=== PATIENT | male | born 1970 | race Caucasian/White ===

== ENCOUNTER 2020-12-05 18:22 | Emergency (ER) | payer OTHER ==
[2020-12-05] MEDS ORDERED: Bacitracin Oint 1 GM U/D Packet TOP ONE (20:06)
[2020-12-05] MEDS ORDERED: Diphtheria,Pertussis(Acell),Tetanus Vaccine 0.5 ML Syringe IM ONE (20:09)
--- NOTE | 2020-12-05 20:32 | EDM.PDOC ---
ED HPI GENERAL MEDICAL PROBLEM - General Chief Complaint: Laceration Stated Complaint: FISH HOOKS LEFT PALM AND LEFT KNEE Time Seen by Provider: 12/05/20 19:49 Source of Information: Reports: Patient History Limitations: Reports: No Limitations - History of Present Illness INITIAL COMMENTS - FREE TEXT/NARRATIVE: 50 yo male presents with fish hooks in left hand and left leg. was kayaking and fish flipped hand into leg imbedding hook in both. Hook was clipped prior to arrival to release from leg. generally healthy - Related Data Allergies Allergy/AdvReac Type Severity Reaction Status Date / Time No Known Allergies Allergy Verified 12/05/20 20:03 Home Meds: Home Meds NK [No Known Home Meds] 12/05/20 [History] Past Medical History - Past Health History Medical/Surgical History: Denies Medical/Surgical History - Infectious Disease History Infectious Disease History: Reports: Chicken Pox Social & Family History - Tobacco Use Tobacco Use Status *Q: Unknown Ever Used Tobacco - Caffeine Use Caffeine Use: Reports: Coffee, Energy Drinks - Recreational Drug Use Recreational Drug Use: No ED ROS GENERAL - Review of Systems Review Of Systems: See Below Constitutional: Denies: Fever Respiratory: Denies: Shortness of Breath Cardiovascular: Denies: Chest Pain ED EXAM, SKIN/RASH Exam: See Below Exam Limited By: No Limitations General Appearance: Alert, WD/WN, No Apparent Distress Respiratory/Chest: No Respiratory Distress Skin: Warm, Dry, Intact, Other (small fish hook in left anterior distal upper leg just above the knee, left palm thumb side) ED SKIN PROCEDURES - Additional/Other Procedure(s) Other (Free Text) Procedure(s): area around hooks cleaned with alcohol. lidocaine 1% injected around imbedded hook. hooks removed with pressure reverse retraction without difficulty. topical antibiotic applied covered with band-aid Course - Vital Signs Last Recorded V/S: Last Vital Signs Temp 36.7 C 12/05/20 20:01 Pulse 76 12/05/20 20:01 Resp 16 12/05/20 20:01 BP 158/93 H 12/05/20 20:01 Pulse Ox 96 12/05/20 20:01 - Orders/Labs/Meds Orders: Active Orders 24 hr Category Date Time Status Vaccines to be Administered [RC] PER UNIT ROUTINE Care 12/05/20 20:09 Active Meds: Medications Discontinued Medications Generic Name Dose Route Start Last Admin Trade Name Patience PRN Reason Stop Dose Admin Bacitracin 1 dose 12/05/20 20:06 12/05/20 20:27 Bacitracin Oint 1 Gm U/D Packet TOP 12/05/20 20:07 1 dose ONETIME ONE Administration Diphtheria/Tetanus/Acell Pertussis 0.5 ml 12/05/20 20:09 12/05/20 20:12 Diphtheria,Pertussis(Acell),Tetanus Vaccine 0.5 Ml Syringe IM 12/05/20 20:10 0.5 ml .ONCE ONE Administration Lidocaine HCl 5 ml 12/05/20 20:05 12/05/20 20:27 Lidocaine 1% 5 Ml Sdv INJECT 12/05/20 20:06 5 ml ONETIME ONE Administration Departure - Departure Time of Disposition: 20:31 Disposition: Home, Self-Care 01 Condition: Good Clinical Impression: Puncture Fish hook injury of finger of left hand Qualifiers: Encounter type: initial encounter Qualified Code(s): S69.92XA - Unspecified injury of left wrist, hand and finger(s), initial encounter - Discharge Information *PRESCRIPTION DRUG MONITORING PROGRAM REVIEWED*: Not Applicable *COPY OF PRESCRIPTION DRUG MONITORING REPORT IN PATIENT JOSÉ: Not Applicable Instructions: Puncture Wound, [id number] Referrals: PCP,None [Primary Care Provider] - Forms: ED Department Discharge Additional Instructions: wash with warm soapy water observe for signs of infection Sepsis Event Note (ED) - Evaluation Sepsis Screening Result: No Definite Risk - Focused Exam Vital Signs: Vital Signs Temp Pulse Resp BP Pulse Ox 12/05/20 20:01 36.7 C 76 16 158/93 H 96 12/05/20 19:41 36.7 C 76 16 158/93 H 96 - My Orders Last 24 Hours: My Active Orders 12/05/20 20:09 Vaccines to be Administered [RC] PER UNIT ROUTINE - Assessment/Plan Last 24 Hours: My Active Orders 12/05/20 20:09 Vaccines to be Administered [RC] PER UNIT ROUTINE
== END 2020-12-05 20:41 | disposition home or self-care (01) ==
LOC: JP.ED 18:22
DX: S61.442A Puncture wound with foreign body of left hand, initial encounter (principal); S81.842A Puncture wound with foreign body, left lower leg, initial encounter; Z23 Encounter for immunization; W45.8XXA Other foreign body or object entering through skin, initial encounter
CPT/HCPCS: 90471; 90715; 99283